=== PATIENT | female | born 1950 | race Caucasian/White ===

== ENCOUNTER 2021-10-10 12:54 | Emergency (ER) | payer MEDICARE, OTHER ==
[~2021-10-10] VITALS: Ht 160 cm; Wt 88.5 kg
--- NOTE | 2021-10-10 13:01 | NUR ---
Patient is AOx4, moving all extremities, c/o severe dizziness to a point that she can not walk at all, respiration:easy, non-labored and even, denies any pains@this time, her skin is warm and dry.
[2021-10-10] MEDS ORDERED: [UNRECOGNIZED DRUG - CODE] IM (13:12)
[2021-10-10] MEDS ORDERED: METF-440 PO (13:12)
[2021-10-10] MEDS ORDERED: LISI-782 PO (13:12)
[2021-10-10] MEDS ORDERED: METO-356 PO (13:12)
[2021-10-10] MEDS ORDERED: HYDR12.55 PO (13:12)
[2021-10-10] MEDS ORDERED: ONDANSETRON 4 MG/2 ML VIAL IV ONE (13:15)
[2021-10-10] MEDS ORDERED: MECLIZINE HCL 25 MG TABLET PO ONE (13:15)
[2021-10-10] MEDS ORDERED: MECLIZINE HCL 25 MG TABLET ONE (13:18)
[2021-10-10] MEDS ORDERED: ONDANSETRON 4 MG/2 ML VIAL ONE (13:18)
[2021-10-10] MEDS ORDERED: SIMV-49 PO (13:33)
[2021-10-10 13:35] LABS: MEAN CORPUSCULAR HEMOGLOBIN 27.4 uug (24.7-32.8); MEAN CORPUSCULAR VOLUME 81.6 fL (75.5-95.3); PLATELET COUNT (AUTO) 427 K/uL (179-408)
[2021-10-10 13:40] LABS: CARBON DIOXIDE 28 mmol/L (21-32); CHLORIDE 99 mmol/L (98-107); CREATININE 0.9 mg/dL (0.6-1.3); GLUCOSE 141 mg/dL (74-106); POTASSIUM 3.5 mmol/L (3.5-5.1); UREA NITROGEN, BLOOD 15 mg/dL (7-18)
[2021-10-10] MEDS ORDERED: ONDA4TAB11 PO ×2 (14:04→14:40)
[2021-10-10] MEDS ORDERED: MECL-159 PO ×2 (14:04→14:40)
--- NOTE | 2021-10-10 14:45 | NUR ---
Patient passed the po challenge and "road test". MD notified. Patient said that she feels so much better and was able to walk.
--- NOTE | 2021-10-10 14:52 | NUR ---
IV removed. Catheter intact and site benign. Pressure and 4x4 gauze applied to site. No bleeding noted. Patient discharged to home in stable condition. Written and verbal after care instructions given to patient and patient's daughter. Patient and family verbalized understanding abd compliance of instructions. Stressed follow up with primary doctor and neurologist or return to ER for worsening s/s. Copies of all the ER tests' results were also given to patient.
== END 2021-10-10 14:53 | disposition home or self-care (01) ==
LOC: ER 12:54
DX: R42 Dizziness and giddiness (principal); E11.9 Type 2 diabetes mellitus without complications; Z79.84 Long term (current) use of oral hypoglycemic drugs; I10 Essential (primary) hypertension; Z79.899 Other long term (current) drug therapy
CPT/HCPCS: 36415; 70450; 80048; 84484; 85025; 93005; 96374; 99285; J2405; A4663; J7040; J8597